=== PATIENT | male | born 1990 | race American Indian/Alaskan Native ===

== ENCOUNTER 2024-04-26 18:39 | Emergency (ER) | payer MEDICAID | END 2024-04-26 20:32 | disposition home or self-care (01) | LOC: JP.ED 18:39 | DX: S62.622A Displaced fracture of middle phalanx of right middle finger, initial encounter for closed fracture (principal); S62.624A Displaced fracture of middle phalanx of right ring finger, initial encounter for closed fracture; L03.116 Cellulitis of left lower limb; F17.210 Nicotine dependence, cigarettes, uncomplicated; Z88.1 Allergy status to other antibiotic agents; Y04.8XXA Assault by other bodily force, initial encounter | CPT/HCPCS: 73130-26-RT; 73130-RT; 99284 ==